=== PATIENT | female | born 1980 | race Caucasian/White ===

== ENCOUNTER → 2020-11-30 | Outpatient (CLI) | payer SELFPAY ==
[2020-12-01 10:31] LABS: Stool Occult Bld Immuno 2 Negative (NEGATIVE)
== END | disposition home or self-care (01) ==
LOC: LAB SHORT 12:10 → PLD 12:10
PROVIDERS: Internal Medicine Gastroenterology
DX: R10.9 Unspecified abdominal pain (principal); K63.89 Other specified diseases of intestine; R14.0 Abdominal distension (gaseous)
CPT/HCPCS: 82274; 83993

== ENCOUNTER → 2020-12-04 | Outpatient (CLI) | payer SELFPAY | LOC: LAB 19:30 → LAB SHORT 19:30 | DX: R10.9 Unspecified abdominal pain (principal); R14.0 Abdominal distension (gaseous); K63.89 Other specified diseases of intestine | CPT/HCPCS: 87177; 87209 ==

== ENCOUNTER → 2023-01-26 | Outpatient (CLI) | payer OTHER | END | disposition home or self-care (01) | LOC: LAB 16:34 → LAB SHORT 16:34 | DX: R30.0 Dysuria (principal) | CPT/HCPCS: 87086 ==